=== PATIENT | male | born 1925 | race Caucasian/White ===

== ENCOUNTER 2017-02-23 08:37 | Inpatient (IN) | payer OTHER ==
[2017-02-23] VITALS (7 sets, daily range): BP systolic 168–187; BP diastolic 73–85
[~2017-02-23] VITALS: Ht 172.7 cm; Wt 76.2 kg
--- NOTE | ~2017-02-23 | H ---
[facility] [place] [address] HISTORY AND PHYSICAL Name: CARRINGTON HERNANDES Nilsa Room #: 456-P [facility] IN ..#: [id number] Admission: 02/23/17 Attend Phys: Lm Walsh MD Discharge: 02/23/17 Date of : [birth year] Report #: [id number] THIS REPORT FOR: //name// CC: Lino Walsh DATE OF SERVICE: 02/23/2017 CHIEF COMPLAINT: Dizziness. HISTORY OF PRESENT ILLNESS: The patient is an 89-year-old man with multiple medical problems, who comes to the hospital with increased dizziness. The patient states that he had first episode in August of this year. No specific cause was found. His dizziness has increased. The patient denies vertigo. He cannot provide any further details. He also states that he lost about 20 pounds. He has good appetite. In the Emergency Room, the patient had CT scan of the chest that showed pulmonary fibrosis progression, but superimposed pneumonia could not be ruled out. The patient also has history of coronary artery disease. He has no chest pains. He is already seen by ultra sound technician. The patient's blood pressure was also found to be elevated. He reports compliance to his medications. He takes lisinopril at home. PAST MEDICAL HISTORY: 1. Coronary artery disease, status post CABG in 2000. Cardiac echo showed normal ejection fraction in July of this year. 2. Hypothyroidism. 3. Diabetes mellitus type 2. 4. BPH. 5. Dyslipidemia. FAMILY HISTORY: Reviewed and not pertinent to the patient's current condition. SOCIAL HISTORY: The patient does not smoke cigarettes. He does not drink alcohol. REVIEW OF SYSTEMS: As above in HPI section, all others negative. PHYSICAL EXAMINATION: GENERAL: The patient is a healthy looking elderly man who is in no apparent distress. He is alert and oriented x3. VITAL SIGNS: His blood pressure is 187/74, heart rate is 58, respiration is 18, [facility] [address] [place] [address] HISTORY AND PHYSICAL Name: CARRINGTON HERNANDES Room #: 456-P [facility]#: [id number] Admission: 02/23/17 Attend Phys: Lm Walsh MD Discharge: 02/23/17 Date of : [birth year] Report #: [id number] and temperature is 97.9. HEENT: Pupils are equal. Eye movements are normal. Sclerae are anicteric. NECK: Supple. The patient does not have JVD. Carotid bruits are not appreciated. RESPIRATORY: Chest moves symmetrically with breathing. Respiratory sounds are clear bilaterally. CARDIOVASCULAR: The patient has regular rhythm and rate. He has no murmurs, gallops, or rubs. GASTROINTESTINAL: Abdomen is soft, nondistended, and nontender. Bowel sounds are normal. The patient has no hepatomegaly or splenomegaly. EXTREMITIES: The patient has no edema, cyanosis, or clubbing. Range of motion is normal. NEUROLOGIC: The patient is alert and oriented x3. Examination is grossly nonfocal. SKIN: The patient has no skin lesions. Lymphadenopathy is not palpated. LABS: On basic metabolic profile, the patient's sodium is slightly low at 132, but otherwise his labs are acceptable. Random glucose is 196. Troponin is normal and BNP is slightly elevated at 311. CBC with differential is normal. The patient has 7% bands, and neutrophils of 74. CT angiography of the chest showed progression of the pulmonary fibrosis, and superimposed infection could not be ruled out. ASSESSMENT AND PLAN: 1. Dizziness. The etiology is unclear. This has been going on for the last several months. CT scan of the brain is unremarkable. We will check orthostatic blood pressures, and try meclizine and physical therapy. Consider MRI of the brain if no improvement, if no clear etiology is found. 2. Progression of the pulmonary fibrosis. State Wildlife Officer will be consulted. Input is very much appreciated. 3. CT scan of the chest shows pulmonary fibrosis, superimposed infection could not be ruled out. The patient has mild bandemia and elevated neutrophils. We will treat the patient with oral Levaquin. 4. Coronary artery disease, status post CABG in 2010. Table Lever Operator consultation is appreciated. Stable, no chest pains. 5. Diabetes mellitus type 2. Check hemoglobin A1c. 6. Hypothyroidism. Check TSH to assess adequacy of thyroid hormone replacement. 7. Deep venous thrombosis prophylaxis. SubQ Lovenox. <ELECTRONICALLY SIGNED> By: Lm Walsh MD 02/26/17 1454 [id number] [id number] Lm Walsh MD /nt
--- NOTE | ~2017-02-23 | HC ---
[facility] [place] [address] CONSULTATION Name: CARRINGTON HERNANDES Nilsa Room #: 456-P [facility] M.R.#: [id number] Admission: 02/23/17 Attend Phys: Lm Walsh MD Discharge: 02/23/17 Date of : [birth year] Report #: [id number] THIS REPORT FOR: //name// CC: Lino Walsh PRIMARY CARE PHYSICIAN: Dr. Lino Olmos. REFERRING PHYSICIAN: Dr. Walsh. REASON FOR REFERRAL: Pulmonary fibrosis. HISTORY OF PRESENT ILLNESS: The patient is an 89-year-old white male who presents to the emergency room with dizziness. CT chest and chest x-ray showed infiltrates. A pulmonary consultation was requested. The patient states that he was seen by Dr. Wero Wade in the past many years ago. He was followed for a lung nodule at that time. A CT chest was performed when he was admitted. This showed evidence of pulmonary fibrosis. The CT chest was also compared to prior chest CT performed in 2005. There appears to be progression in interstitial lung disease. In my review the chest CT did show heterogeneous infiltrates with some ground glass opacity, peripheral based pulmonary fibrosis. The patient was in his usual state of health until around August of this year when he started to feel dizzy. He also states that his appetite has been poor. He has lost some weight. He is said to have lost about 20 pounds. He has not had a workup up to this time. Aside from his dizziness and poor appetite, denies any night sweats, fever, chills, chest pain or productive cough. The patient has smoked, but quit in . 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 He denies any exposure to industrial or toxins. PAST MEDICAL HISTORY: Remarkable for coronary artery disease, undergoing coronary artery bypass surgery in 2000, echocardiogram performed marked of this year was normal. He has a history of hypothyroidism, diabetes mellitus type 2, benign prostate hypertrophy and dyslipidemia. ALLERGIES: None noted. HOME MEDICATIONS: Include levothyroxine, vitamin supplements, metformin, atorvastatin, aspirin, Zestril, Flomax. [facility] [address] [address] CONSULTATION Name: CARRINGTON HERNANDES Room #: 456-P [facility]#: [id number] Admission: 02/23/17 Attend Phys: Lm Walsh MD Discharge: 02/23/17 Date of : [birth year] Report #: [id number] FAMILY HISTORY: Notable for mother had some form of lung disease, he does not recall exactly what the diagnosis was and she has . Father had heart disease. SOCIAL HISTORY: Born and raise in [facility]. He grown up in the farm. He smoked for few years, but quit in . He denies any alcohol use. He is . He has children who live in town. REVIEW OF SYSTEMS: As mentioned above, otherwise 10-point system review negative. PHYSICAL EXAMINATION: GENERAL: He is awake, alert, in no apparent distress. VITAL SIGNS: Temperature is 98 degrees Fahrenheit, pulse is 60, respiratory rate is 18, blood pressure 178/73 mmHg, saturation 95%. HEENT: Normocephalic, atraumatic. NECK: Supple, without any lymphadenopathy or thyromegaly. CHEST: Breath sounds are moderate with few scattered crackles, more on the right than the left. No wheezes. CARDIOVASCULAR: Normal S1, S2. There are no murmurs or gallop. There is no JVD. There is no carotid bruit. Pulses are 2+/4+ bilaterally. ABDOMEN: Soft, nontender, no organomegaly or masses felt. GENITOURINARY: Deferred. RECTAL: Deferred. EXTREMITIES: There is no edema, cyanosis or clubbing. DIAGNOSTIC AND LABORATORY DATA: CT chest as mentioned above showing heterogeneous interstitial infiltrates, patterns of ground glass opacities along with subpleural pulmonary fibrosis, the interstitial process appears to have worsened since 2006. CT head shows moderate atrophy. Chest x-ray shows cardiomegaly, bilateral interstitial infiltrates. Electrolytes are normal. WBC 6000, hemoglobin is 14.8, platelets are normal. IMPRESSION: 1. Interstitial lung disease in this 89-year-old white male. He appears to have mild interstitial changes back in 2005, now with progressed on his most current chest CT. The radiographic distribution suggests probable idiopathic interstitial pneumonitis, possible usual interstitial pneumonia. Acute bacterial pneumonia is felt to be less likely though cannot actually be ruled out given the absence of febrile illness or productive cough or leukocytosis. 2. Recent onset of dizziness, etiology unclear. The patient may benefit from a neurologic evaluation. 3. Recent weight loss, poor appetite. We will consider workup for possible occult neoplasm. We will defer to primary medical team. 4. Coronary artery disease, status post coronary bypass surgery in 2000. [facility] [address] [place] [address] CONSULTATION Name: CARRINGTON HERNANDES Room #: 456-P [facility] M.R.#: [id number] Admission: 02/23/17 Attend Phys: Lm Walsh MD Discharge: 02/23/17 Date of : [birth year] Report #: [id number] RECOMMENDATION: I had a long discussion with the patient and his [id number]. Given his advanced age, will be considered in our workup. We will obtain collagen vascular panel. We will defer invasive workup such as bronchoscopy or transbronchial biopsies, etc. For now, I will defer any pulmonary workup for now and this can be performed as an outpatient. As mentioned above, he benefit workup for dizziness and weight loss of underdetermined etiology. Thank you for this consultation. <ELECTRONICALLY SIGNED> By: Maynor Garsia MD 03/08/17 1920 [id number] Maynor Garsia MD /nt
--- NOTE | ~2017-02-23 | EKG ---
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 : 1925 Requested By: Humberto Salomon Order Number: [id number] MD: John Park Measurements Intervals [place] Rate: 56 P: -38 ND: 219 QRS: -14 QRSD: 126 T: 140 QT: 471 QTc: 455 Interpretive Statements Sinus rhythm Borderline prolonged ND interval LVH with secondary repolarization abnormality Lateral ST depression possibly related to ischemia Anterior Q waves, possibly due to LVH Electronically Signed On 02-23-2017 10:46:07 CDT by John Park [email or web address] <ELECTRONICALLY SIGNED> By: John Park MD 02/23/17 1046 3 3 John Park MD /THAI
[2017-02-23] MEDS ORDERED: CO Q-10100 MG PO (08:50)
[2017-02-23] MEDS ORDERED: SYNTHROID75 MCG PO (08:50)
[2017-02-23] MEDS ORDERED: VITAMINC500 PO (08:51)
[2017-02-23] MEDS ORDERED: METFORMIN HCL500 MG PO (08:51)
[2017-02-23] MEDS ORDERED: FENOFIBRATE160 MG PO (08:51)
[2017-02-23] MEDS ORDERED: FISH OIL 1,001000 M2 PO (08:51)
[2017-02-23] MEDS ORDERED: PREVASTATIN (08:52)
[2017-02-23] MEDS ORDERED: ASPIR 8181 M1 PO (08:53)
[2017-02-23] MEDS ORDERED: FLOMAX0.4 MG PO (08:53)
[2017-02-23] MEDS ORDERED: LISINOPRIL20 MG PO (08:53)
[2017-02-23] MEDS ORDERED: UNICOMPLEX M TA1 TA1 PO (08:53)
[2017-02-23 09:07] LABS: ABSOLUTE NEUTROPHILS 4.4 thou/uL (1.4-8.2); BASOPHILS 0.3 % (0.0-2.0); EOSINOPHILS 0.8 % (0.0-3.0); HEMATOCRIT 41.4 % (42.0-52.0); HEMOGLOBIN 14.8 gm/dL (14.0-18.0); LYMPHOCYTES 16.3 % (24.0-44.0); MANUAL DIFF NO; MCH 32.1 pg (26.0-34.0); MCHC 35.7 g/dL (28.0-37.0); MONOCYTES 8.6 % (1.0-8.0); PLATELET COUNT 167 thou/uL (150-400); RDW 13.8 % (10.5-14.5)
[2017-02-23 09:16] LABS: ANION GAP 8 mmol/L (7-16); BUN 23 mg/dL (7-18); CALCIUM 9.3 mg/dL (8.5-10.1); CHLORIDE 99 mmol/L (98-107); CO2 25 mmol/L (21-32); CREATININE 0.9 mg/dL (0.7-1.3); GLUCOSE 196 mg/dL (74-106); SODIUM 132 mmol/L (136-145)
[2017-02-23 09:24] LABS: TROPONIN-I < 0.04 ng/mL (<0.04-0.07)
[2017-02-24 01:11] LABS: GLYCOHEMOGLOBIN (HGB A1C) 6.7 % (4.8-5.6)
== END 2017-02-23 19:41 | disposition home or self-care (01) | DRG 149 ==
LOC: ER 08:37 → EROBS 11:03 → 4W 13:27
PROVIDERS: Internal Medicine Endocrinology, Diabetes & Metabolism; Internal Medicine Pulmonary Disease; Nurse Practitioner
DX: R42 Dizziness and giddiness (principal); J84.9 Interstitial pulmonary disease, unspecified; I95.1 Orthostatic hypotension; I25.10 Atherosclerotic heart disease of native coronary artery without angina pectoris; E78.5 Hyperlipidemia, unspecified; E11.9 Type 2 diabetes mellitus without complications; I35.0 Nonrheumatic aortic (valve) stenosis; I10 Essential (primary) hypertension; E06.9 Thyroiditis, unspecified; N40.0 Benign prostatic hyperplasia without lower urinary tract symptoms; Z79.82 Long term (current) use of aspirin; Z79.84 Long term (current) use of oral hypoglycemic drugs; Z79.899 Other long term (current) drug therapy; Z83.6 Family history of other diseases of the respiratory system; Z95.1 Presence of aortocoronary bypass graft; Z82.49 Family history of ischemic heart disease and other diseases of the circulatory system; Z87.891 Personal history of nicotine dependence
CPT/HCPCS: 10045